=== PATIENT | female | born 1975 | race Caucasian/White ===

== ENCOUNTER 2016-08-04 17:10 | Observation (INO) | payer BC, MEDICAID ==
[~2016-08-04] VITALS: Ht 167.6 cm; Wt 91.5 kg
[~2016-08-04 17:10] MED LIST: FLAG500T PO; LEVA500T PO; PERC10TA27 PO; Z.0.NO CURRENT MEDS
[2016-08-04 17:11] VITALS: BP 151/79; PULSE 90; RESP 14; TEMP 98.7; O2SAT 100
[2016-08-04] MEDS ORDERED: VANCOMYCIN INJ 1,000 MG in SODIUM CHLOR 0.9% 250 ML INJ 250 ML IV STA (17:29)
[2016-08-04] MEDS ORDERED: PIPERACIL-TAZO 4.5 GM PREMIX 100 ML IV STA (17:29)
[2016-08-04] MEDS ORDERED: SODIUM CHLORID 0.9% 500 ML INJ 500 ML IV ONE (17:30)
[2016-08-04 17:38] VITALS: O2SAT 100
[2016-08-04] MEDS ORDERED: BUPR150CR PO (17:38)
[2016-08-04] MEDS ORDERED: CYMB30CA PO (17:38)
[2016-08-04] MEDS ORDERED: SUBO8MIS SL (17:38)
[2016-08-04] MEDS ORDERED: GABA800T PO (17:38)
[2016-08-04 18:10] LABS: AUTOMATED NEUTROPHIL # 8.9 TH/MM3 (1.8-7.7); BASOPHIL # 0.1 TH/MM3 (0-0.2); BASOPHIL % 0.8 % (0.0-2.0); EOSINOPHIL # 0.5 TH/MM3 (0-0.4); HEMATOCRIT 36.2 % (35.0-46.0); HEMO FLAGS DIFF FINAL; LYMPH % 19.6 % (9.0-44.0); LYMPHOCYTE # 2.6 TH/MM3 (1.0-4.8); MEAN CELL VOLUME 88.1 FL (80.0-100.0); MEAN CORPUSCULAR HEMOGLOBIN 29.4 PG (27.0-34.0); MEAN CORPUSCULAR HGB CONC 33.4 % (32.0-36.0); MONO % 8.4 % (0.0-8.0); NEUT % 67.2 % (16.0-70.0); PLATELET COUNT 279 TH/MM3 (150-450); RED CELL DISTRIBUTION WIDTH 13.9 % (11.6-17.2); WHITE BLOOD COUNT 13.2 TH/MM3 (4.0-11.0)
--- NOTE | 2016-08-04 18:17 | RADRPT ---
EXAM DATE/TIME: 08/04/2016 17:54 [facility] COMPARISON: No previous studies available for comparison. INDICATIONS : Shortness of breath. MEDICAL HISTORY : SURGICAL HISTORY : Tubal ligation. ENCOUNTER: Initial ACUITY: 2 days PAIN SCORE: 0/10 LOCATION: Bilateral chest FINDINGS: A single view of the chest demonstrates the lungs to be symmetrically aerated without evidence of mas s, infiltrate or effusion. The cardiomediastinal contours are unremarkable. Osseous structures are intact. CONCLUSION: No acute disease. Raghav Novoa MD on August 04, 2016 at 18:15 Board Certified Radiologist. This report was verified electronically.
[2016-08-04 18:23] LABS: APTT (PATIENT) 28.7 SEC (24.3-30.1); INTERNATIONAL NORMALIZED RATIO 0.9 RATIO
--- NOTE | 2016-08-04 18:23 | PD ---
HPI Chief Complaint: Cardiac Complaint Time Seen by Provider: 17:26 Travel History International Travel<30 days: No Contact w/Intl Traveler<30days: No Traveled to known affect area: No History of Present Illness HPI 41 y/o female presents with 14 pound weight gain over the past week and new murmur with history of IV drug abuse and endocarditis sent in from Dr. laird 's office. She's also been having orthopnea. She was sent here for admission but given there are no rooms available upstairs she was sent to the emergency room initially [facility] Past Medical History ADHD: Yes Blood Disorders: No Anxiety: No Depression: No Heart Rhythm Problems: No Cancer: No Cardiovascular Problems: No High Cholesterol: No Chemotherapy: No Chest Pain: No Congestive Heart Failure: No Cirrhosis: Yes (hep c ) Diabetes: No Endocrine: No Genitourinary: Yes (INCONTINENCE) Hepatitis: No Hiatal Hernia: No Immune Disorder: No Kidney Stones: Yes Medical other: Yes (4G/4G CLOTTING DISORDER) Musculoskeletal: No Neurologic: No Psychiatric: No Respiratory: No Radiation Therapy: No Thyroid Disease: No ?: Not Tubal Ligation: Yes Past Surgical History Gynecologic Surgery: Yes (D/C, TUBAL LIG., HYSTERECTOMY) Hysterectomy: Yes Pacemaker: No Other Surgery: Yes Social History Alcohol Use: Yes (RARELY) Tobacco Use: Yes ( 1/2PPD FOR 16 YEARS) Substance Use: No Allergies-Medications (Allergen,Severity, Reaction): Coded Allergies: Vancomycin (Verified Allergy, Severe, Rash, 08/04/16) Reported Meds & Prescriptions Reported Meds & Active Scripts Active Reported Gabapentin 800 Mg Tab 800 Mg PO QID Cymbalta DR (Duloxetine HCl) 30 Mg Capdr 30 Mg PO HS Wellbutrin SR 12 HR (Bupropion HCl) 150 Mg Tab 300 Mg PO DAILY Suboxone Sublingual Film (Buprenorphine-Naloxone Sublingual Film) 8-2 Mg Film 1 Film SL BID Unique ID number required: Review of Systems Except as stated in HPI: all other systems reviewed are Neg Physical Exam Narrative GENERAL: Well-nourished, well-developed patient. SKIN: Warm and dry. HEAD: Normocephalic and atraumatic. EYES: No injection or drainage. ENT: No nasal drainage noted. NECK: Supple, trachea midline. CARDIOVASCULAR: Regular rate and rhythm RESPIRATORY: No increased effort. No accessory muscle use. NEUROLOGICAL: Awake and alert. Motor and sensory grossly within normal limits. Normal speech. Data Data Last Documented VS Vital Signs Date Time Temp Pulse Resp B/P Pulse Ox O2 Delivery O2 Flow Rate FiO2 08/04/16:11 98.7 90 14 151/79 100 Room Air Orders Admit Order (Ed Use Only) (08/04/16 17:29) Electrocardiogram (08/04/16:29) Complete Blood Count With Diff (08/04/16:) Comprehensive Metabolic Panel (08/04/16:) Prothrombin Time / Inr (Pt) (08/04/16:) Act Partial Throm Time (Ptt) (08/04/16:) Lactic Acid Sepsis Protocol (08/04/16:) Magnesium (Mg) (08/04/16:) Phosphorus (Po4) (08/04/16:) Urinalysis - C+S If Indicated (08/04/16:) Blood Culture (08/04/16:29) Chest, Single Ap (08/04/16:29) Blood Glucose (08/04/16:29) Ecg Monitoring (08/04/16:29) Iv Access Insert/Monitor (08/04/16:) Oximetry (08/04/16:29) Vancomycin Inj (Vancomycin Inj) (08/04/16 17:29) Piperacil-Tazo 4.5 Gm Premix (Zosyn 4.5 (08/04/16 17:29) Sodium Chlorid 0.9% 500 Ml Inj (Ns 500 M (08/04/16 17:30) B-Type Natriuretic Peptide (08/04/16 17:29) Ckmb (Isoenzyme) Profile (08/04/16 17:29) Troponin I (08/04/16 17:29) MDM Medical Decision Making Medical Screen Exam Complete: Yes Emergency Medical Condition: Yes Medical Record Reviewed: Yes (past history confirmed) Differential Diagnosis Endocarditis, UTI, pneumonia, abscess.... Narrative Course Initial workup ordered including cultures and lactate and broad-spectrum antibiotics of Zosyn, vancomycin and IV fluid hydration was initiated, further care will be through her admitting physician Physician Communication Physician Communication dr samuel talked with me over the phone and agrees to initial orders as discussed and she will take over care and gave me basic initial history Diagnosis Primary Impression: IVDU (intravenous drug user) Admitting Information Admitting Physician Requests: Observation Ebony Shipley MD Aug 04, 2016 18:23
[2016-08-04 18:27] LABS: ALT (GPT) 35 U/L (10-53); ANION GAP 6 MEQ/L (5-15); AST (GOT) 29 U/L (15-37); BICARBONATE 29.1 MEQ/L (21.0-32.0); BLOOD UREA NITROGEN 6 MG/DL (7-18); CHLORIDE 105 MEQ/L (98-107); GLOMERULAR FILTRATION RATE 86 ML/MIN (>89); MAGNESIUM 1.9 MG/DL (1.5-2.5); SODIUM (NA) 140 MEQ/L (136-145)
[2016-08-04 18:32] LABS: ALKALINE PHOSPHATASE 116 U/L (45-117); CREATINE KINASE 240 U/L (26-192); TOTAL BILIRUBIN ADULT 0.2 MG/DL (0.2-1.0)
[2016-08-04 18:44] LABS: CKMB 6.2 NG/ML (0.5-3.6)
[2016-08-04 21:41] VITALS: O2SAT 100
[2016-08-04 22:00] VITALS: BP 147/69; PULSE 78; RESP 18; TEMP 98.7; O2SAT 98
[2016-08-04 23:05] VITALS: BP 102/54; PULSE 79; RESP 18; O2SAT 98
[2016-08-05] VITALS (9 sets, daily range): BP systolic 100–117; BP diastolic 50–64; PULSE 70–79; RESP 16–21; TEMP 98–98.4; O2SAT 94–98
[2016-08-05 00:36] LABS: BASOPHIL # 0.1 TH/MM3 (0-0.2); BASOPHIL % 0.8 % (0.0-2.0); EOSINOPHIL # 0.6 TH/MM3 (0-0.4); EOSINOPHIL % 5.6 % (0.0-4.0); HEMATOCRIT 31.6 % (35.0-46.0); HEMO FLAGS DIFF FINAL; LYMPH % 22.2 % (9.0-44.0); LYMPHOCYTE # 2.2 TH/MM3 (1.0-4.8); MEAN CELL VOLUME 86.6 FL (80.0-100.0); MEAN CORPUSCULAR HEMOGLOBIN 30.2 PG (27.0-34.0); MEAN CORPUSCULAR HGB CONC 34.9 % (32.0-36.0); MONO % 10.7 % (0.0-8.0); NEUT % 60.7 % (16.0-70.0); PLATELET COUNT 249 TH/MM3 (150-450); RED BLOOD COUNT 3.65 MIL/MM3 (4.00-5.30); RED CELL DISTRIBUTION WIDTH 13.7 % (11.6-17.2)
[2016-08-05 00:41] LABS: BICARBONATE 28.4 MEQ/L (21.0-32.0); POTASSIUM 3.7 MEQ/L (3.5-5.1)
[2016-08-05 00:48] LABS: APTT (PATIENT) 29.3 SEC (24.3-30.1); INTERNATIONAL NORMALIZED RATIO 0.9 RATIO
[2016-08-05] MEDS: SODIUM CHLORIDE FLUSH BID IVF SCH ×2 (00:59→20:24)
[2016-08-05] MEDS ORDERED: SODIUM CHLORIDE FLUSH PRN IVF (01:00)
[2016-08-05] MEDS ORDERED: FUROSEMIDE 20 MG/2 ML VIAL IV PUSH ONE (01:00)
[2016-08-05 01:39] LABS: AMPHETAMINE, URINE NEG (NEG); BACTERIA, URINE RARE /hpf; BARBITURATES, URINE NEG (NEG); BLOOD, URINE NEG (NEG); COCAINE, URINE NEG (NEG); COMMENT (UR) CATH-CULTURE IND; CULTURE IF INDICATED CATH CULTURE IND; GLUCOSE,URINE NEG (NEG); KETONE, URINE NEG (NEG); MUCUS URINE FEW /lpf (OCC); NITRITE,URINE NEG (NEG); SQUAMOUS EPITHELIAL CELL URINE 9 /hpf (0-5); URINE COLOR YELLOW (YELLW/STRAW)
--- NOTE | 2016-08-05 08:19 | PD.CONS ---
HPI Chief Complaint Severe SOB, 2 pillow orthopnea, cough and swelling hx of rececnt IV drug us (Jul 23 last time) hx of suboptimally treated endocarditis [place] Date Seen: Aug 05, 2016 Time Seen: 08:16 Travel History International Travel<30 Days: No Contact w/Intl Traveler<30Days: No Known Affected Area: No History of Present Illness HPI Full H & P dictated yesterday No fever, no tachycardia bad "pins and needles" in lower extremities pulse ox 92%?? Allergies-Medications (Allergen,Severity, Reaction): Coded Allergies: Vancomycin (Verified Allergy, Severe, Rash, 08/04/16) Home Meds Reported Medications Gabapentin 800 Mg [id number] Mg PO QID #90 TAB Ref 0 08/04/[address] (Cymbalta DR)30 Mg Capdr30 Mg PO HS #30 CAP Ref 0 08/04/16 Bupropion HCl ER 12 HR (Wellbutrin SR 12 HR)150 Mg [id number] Mg PO DAILY Ref 0 08/04/16 Buprenorphine-Naloxone Sublingual Film (Suboxone Sublingual Film)8-2 Mg Film1 Film SL BID Unique ID number required: 08/04/16 Physical Exam Narrative GENERAL: Well-nourished, well-developed patient. SKIN: Warm and dry. HEAD: Normocephalic and atraumatic. EYES: No scleral icterus. No injection or drainage. ENT: No nasal drainage noted. Mucous membranes pink. Airway patent. NECK: Supple, trachea midline. No JVD. CARDIOVASCULAR: Regular rate and rhythm without murmurs, gallops, or rubs. RESPIRATORY: Breath sounds equal bilaterally. No accessory muscle use. BREASTS: Bilateral exam showed no masses , no retractions, no nipple discharge. ABDOMEN/GI: Abdomen soft, non-tender, bowel sounds present, no rebound, no guarding Gravid to [-] weeks size Fundal Height: [-] GENITOURINARY: External Genitalia: intact and normal in appearance BUS glands: [-] Cervix: [-] Dilatation: [-] Effacement: [-] Station: [-] Presentation: [-] Membranes: [intact or ruptured] Uterine Contractions: [-] FHT's: Category: [-] Baseline: [-] Reactive: [-] Variability: [-] Decels: [-] EXTREMITIES: No cyanosis or edema. BACK: Nontender without obvious deformity. No CVA tenderness. NEUROLOGICAL: Awake and alert. Motor and sensory grossly within normal limits. Five out of 5 muscle strength in all muscle groups. Normal speech. Data Data Orders Admit Order (Ed Use Only) (08/04/16:29) Electrocardiogram (08/04/16:29) Complete Blood Count With Diff (08/04/16:29) Comprehensive Metabolic Panel (08/04/16:29) Prothrombin Time / Inr (Pt) (08/04/16:) Act Partial Throm Time (Ptt) (08/04/16:29) Lactic Acid Sepsis Protocol (08/04/16:) Magnesium (Mg) (08/04/16:) Phosphorus (Po4) (08/04/16:) Urinalysis - C+S If Indicated (08/04/16:) Blood Culture (08/04/16:) Chest, Single Ap (08/04/16:29) Blood Glucose (08/04/16:29) Ecg Monitoring (08/04/16:29) Iv Access Insert/Monitor (08/04/16:29) Oximetry (08/04/16:29) Vancomycin Inj (Vancomycin Inj) (08/04/16:29) Piperacil-Tazo 4.5 Gm Premix (Zosyn 4.5 (08/04/16 17:29) Sodium Chlorid 0.9% 500 Ml Inj (Ns 500 M (08/04/16 17:30) B-Type Natriuretic Peptide (08/04/16 17:29) Ckmb (Isoenzyme) Profile (08/04/16 17:29) Troponin I (08/04/16:29) Diet Regular Basic (08/04/16 Dinner) ^ Call Physician (08/04/16 17:46) CKMB (08/04/16 17:45) CKMB% (08/04/16 17:45) Vital Signs (Adult) MELINA.Q4H (08/04/16 23:26) Drug Screen, Random Urine (08/04/16 23:26) Complete Blood Count With Diff (08/04/16 23:26) Prothrombin Time / Inr (Pt) (08/04/16 23:26) Act Partial Throm Time (Ptt) (08/04/16 23:26) Basic Metabolic Panel (Bmp) (08/04/16 23:26) Intake + Output 06,14,22 (08/04/16 23:26) ^ Other Nursing Orders (08/04/16 23:26) Resp Pulse Oximetry (08/04/16 ) Diet Npo (08/05/16 Breakfast) NPO (08/04/16 23:26) Consult Cardiology (08/04/16 23:41) Gabapentin (Neurontin) (08/05/16 09:00) Bupropion Sr (Wellbutrin Sr) (08/05/16 09:00) Duloxetine Dr (Dennise Sauer) (08/05/16 09:00) Sodium Chloride 0.9% Flush (Ns Flush) (08/05/16 09:00) Sodium Chloride 0.9% Flush (Ns Flush) (08/05/16 01:00) Furosemide Inj (Lasix Inj) (08/05/16 01:00) Urine Culture (08/05/16 01:10) (Hub Use Only)Inp Phy Cons/Ref (08/05/16 ) Echo Transesophageal (08/05/16 ) Labs Laboratory Tests Test 08/04/16 08/05/16 08/05/16 17:45 00:05 01:10 Prothrombin Time 10.0 10.0 Prothromb Time International 0.9 0.9 Ratio Activated Partial 28.7 29.3 Thromboplast Time Sodium Level 140 141 Potassium Level 4.0 3.7 Chloride Level 105 107 Carbon Dioxide Level 29.1 28.4 Anion Gap 6 6 Blood Urea Nitrogen 6 6 Creatinine 0.75 0.71 Estimat Glomerular Filtration 86 91 Rate Random Glucose 93 106 Lactic Acid Level 1.7 Calcium Level 9.0 8.4 Phosphorus Level 2.9 Magnesium Level 1.9 Total Bilirubin 0.2 Aspartate Amino Transf 29 (AST/SGOT) Alanine Aminotransferase 35 (ALT/SGPT) Alkaline Phosphatase 116 Total Creatine Kinase 240 Creatine Kinase MB 6.2 Creatine Kinase MB % 2.6 Troponin I LESS THAN 0.02 B-Type Natriuretic Peptide 13 Total Protein 6.5 Albumin 3.2 White Blood Count 13.2 10.0 Red Blood Count 4.10 3.65 Hemoglobin 12.1 11.0 Hematocrit 36.2 31.6 Mean Corpuscular Volume 88.1 86.6 Mean Corpuscular Hemoglobin 29.4 30.2 Mean Corpuscular Hemoglobin 33.4 34.9 Concent Red Cell Distribution Width 13.9 13.7 Platelet Count 279 249 Mean Platelet Volume 7.7 7.9 Neutrophils (%) (Auto) 67.2 60.7 Lymphocytes (%) (Auto) 19.6 22.2 Monocytes (%) (Auto) 8.4 10.7 Eosinophils (%) (Auto) 4.0 5.6 Basophils (%) (Auto) 0.8 0.8 Neutrophils # (Auto) 8.9 6.0 Lymphocytes # (Auto) 2.6 2.2 Monocytes # (Auto) 1.1 1.1 Eosinophils # (Auto) 0.5 0.6 Basophils # (Auto) 0.1 0.1 CBC Comment DIFF FINAL DIFF FINAL Differential Comment Urine Color YELLOW Urine Turbidity CLEAR Urine pH 6.0 Urine Specific [place] 1.027 Urine Protein TRACE Urine Glucose (UA) NEG Urine Ketones NEG Urine Occult Blood NEG Urine Nitrite NEG Urine Bilirubin NEG Urine Urobilinogen 2.0 Urine Leukocyte Esterase NEG Urine RBC 1 Urine WBC 2 Urine Squamous Epithelial 9 Cells Urine Bacteria RARE Urine Mucus FEW Microscopic Urinalysis Comment CATH-CULTURE IND Urine Opiates Screen NEG Urine Barbiturates Screen NEG Urine Amphetamines Screen NEG Urine Benzodiazepines Screen NEG Urine Cocaine Screen NEG Urine Cannabinoids Screen POS Date/Time Procedure Status Source Growth 08/05/16 01:10 Urine Culture Received Urine Catheterized Urine Pending 08/04/16 17:45 Aerobic Blood Culture Received Blood Peripheral Pending 08/04/16 17:45 Anaerobic Blood Culture Received Blood Peripheral Pending [facility] Medical Record Reviewed: Yes Plan awaiting MANNY today and disposition thereafter currently on zosyn cultures pending. Admitting diagnosis: opioid maintenance, rule out endocarditis Renetta Parker MD Aug 05, 2016 08:19
--- NOTE | 2016-08-05 08:56 | MH ---
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 SECONDARY DIAGNOSIS: Hepatitis C with a sustained viral response to medication. Fibromyalgia versus autoimmune disease, mixed connective tissue disease. Depression and anxiety. HISTORY OF PRESENT ILLNESS: The patient is a 41 year-old white female, para 3, status post total abdominal hysterectomy in the distant past, who has been in my practice now approximately six months. She recently began Suboxone 8 milligrams b.i.d. having had a recent relapse of IV drug use, the last time being July 23. She did share needles at that time. She has had chronic pain, possibly due to a mixed connective or autoimmune process versus fibromyalgia and depression and we have been treating for these dual diagnoses for the last six months. MEDICATIONS: Her medications are: 1. Suboxone 8 milligrams b.i.d. 2. Gabapentin 800 q.i.d. 3. Wellbutrin 300 milligrams q a.m. 4. Cymbalta 30 q a.m. Beginning several days ago she developed severe shortness of breath and swelling in her legs. She has two pillow orthopnea and cannot lay flat. In six days she has gained 14 pounds. She has a 3/6 holosystolic murmur over the aortic valve. There is no arrhythmia. Her lungs did not auscultate wet. She has no CVA tenderness. Did not auscultate wet. She is complaining of increased joint and muscle pain. She denies fever, chills, nausea and vomiting or diarrhea. Her appetite has been the same or diminished. Her history is complicated. In addition to the above she has a positive Factor V Leiden. She has had a history of colonic polyps and recently had her gallbladder removed. She had Hepatitis C, underwent retroviral therapy and has had a sustained viral response. She has had a history of MRSA. It is unclear if her ovaries are still working at this time. She has no known kidney disease. No previous pulmonary disease. As mentioned, she had the bout of bacterial endocarditis last year and was treated at [facility] for approximately one week with IV antibiotics. She was to follow up afterwards but only took a spotty course or oral antibiotics and did not follow up with either Infectious Disease or cardiology as she knew she needed to. She then became clean, had a relapse in June and now is trying to use maintenance therapy for opioid dependence. REVIEW OF SYSTEMS: Otherwise negative. FAMILY HISTORY: Significant for both parents dying from blood cancer. PAST SURGICAL HISTORY: Significant for: Total abdominal hysterectomy. Gallbladder removal. SOCIAL HISTORY: She smoked about a half-pack per day. Denies current IV drug use or illicit substances, is not diverting her Suboxone. PHYSICAL EXAMINATION: Her weight is 202. It was 188 on July 28, and this is using the same scale. Her blood pressure today is 126/74, pulse is 80. She did not have an obvious JVD. Her lungs seem to be clear to auscultation and percussion, maybe some diminished breath sounds in the lower lobes. Heart: Rate and rhythm are regular, but she has a significant blowing murmur over the aortic valve that I did not appreciate in prior exam six months ago. I did not listen to her heart carefully last week. Abdomen: No fluid wave. No hepatosplenomegaly. This was confirmed on brief ultrasound in the office. She has no CVA tenderness. Her legs reveal 4+ edema all the way up above the knee and are tender to touch. IMPRESSION: Sudden weight gain, shortness of breath, and new cardiac murmur in the context of recent IV drug use and past history of bacterial endocarditis. She is at significant risk for a recurrence of bacterial endocarditis and is being sent to [place] to consult with Dr. Jaden Patterson and have a transesophageal echocardiogram in the morning. She will also receive Lasix, routine lab work. There is also the possibility of autoimmune or inflammatory process outside of what we have discussed. We did have a full set of labs that she is taking over to the hospital that showed an elevated white count of only 12.6 but with a left shift. Her LFTs were just minimally elevated and no detectable virus was identified. Follow up will be based on repeat lab work, MANNY. She will continue her Suboxone but may need additional cardiac treatment should she indeed have bacterial endocarditis. Renetta Acosta MD PPC/MANOHAR /2:52 PM /8:54 AM
[2016-08-05] MEDS: DULoxetine HCl DR 30 MG CAP PO SCH (10:19)
[2016-08-05] MEDS: GABAPENTIN 400 MG CAP PO SCH ×4 (10:19→20:23)
[2016-08-05] MEDS: buPROPion HCL 150 MG SUSTAINED RELEASE TAB PO SCH (10:19)
--- NOTE | 2016-08-05 10:25 | EKG ---
Date Performed: 08/04/2016 Time Performed: 17:45:07 PTAGE: 41 years EKG: Sinus rhythm NORMAL ECG NO PREVIOUS TRACING DOCTOR: Mesfin Hardy Interpretating Date/Time 08/05/2016 10:23:54
[2016-08-05] MEDS ORDERED: PROPOFOL 200 MG/20 ML AMP IV ONE (11:24)
--- NOTE | 2016-08-05 12:34 | HHI.PR ---
Subjective Remarks HD 2 s/p TTE Communication with Dr. Hernandez indicates no JOSEPH/SBE good function etiology of symptoms unclear. awaiting culture if cultures positive Jaden recommends repeat MANNY in 2 weeks in meantime will obtain help from hospitalist to explore causes of edema, orthopnea, cough and diffuse rashes and pain. Objective Vital Signs Vital Signs Date Time Temp Pulse Resp B/P Pulse Ox O2 Delivery O2 Flow Rate FiO2 08/05/16 08:04 75 21 104/55 94 08/05/16 06:19 73 16 104/63 97 Room Air 08/05/16 04:14 70 16 103/60 98 Room Air 08/05/16 01:42 94 21 08/05/16 01:19 71 18 100/50 97 Room Air 08/04/16 23:05 79 18 102/54 98 Room Air 08/04/16 22:00 98.7 78 18 147/69 98 Room Air 08/04/16 21:41 100 08/04/16 17:38 100 Room Air 08/04/16 17:11 98.7 90 14 151/79 100 Room Air Result Diagram: 08/05/16 0005 08/05/16 0005 Objective Remarks Chest is clear, regular rate and rhythm. Abdomen is soft and non-distended. Incision is clean and dry. Ext no CCE. A/P Assessment and Plan Post Op Day 1 Doing well Home today and return to office in two weeks. Renetta Parker MD Aug 05, 2016 12:34
--- NOTE | 2016-08-05 12:36 | ETE ---
Study Study Date:08/05/2016 STUDY CONCLUSIONS SUMMARY - Left ventricle: The cavity size was normal. Wall thickness was normal. Systolic function was normal. Wall motion was normal; there were no regional wall motion abnormalities. - Aortic valve: No evidence of vegetation. - Mitral valve: No evidence of vegetation. - Left atrium: No evidence of thrombus in the atrial cavity or appendage. - Tricuspid valve: No evidence of vegetation. - Pulmonic valve: No evidence of vegetation. If LV function is below 40, please consider prescribing an ACEI or ARB or document rationale for non-use. PROCEDURE DATA Consent: The risks, benefits, and alternatives to the procedure were explained to the patient and informed consent was obtained. Procedure: Initial setup. The patient was brought to the laboratory in the fasting state. Intravenous access was obtained. Surface ECG leads and pulse oximetric signals were monitored. Sedation. Deep sedation was administered by anesthesiology. Transesophageal echocardiography. A transesophageal probe was inserted by the attending drawer in. Image quality was good. Study completion: All IVs inserted during the procedure were removed. The patient tolerated the procedure well. There were no complications. Transesophageal echocardiography. 2D, complete spectral Doppler, and color Doppler. CARDIAC ANATOMY LEFT VENTRICLE: The cavity size was normal. Wall thickness was normal. Systolic function was normal. Wall motion was normal; there were no regional wall motion abnormalities. AORTIC VALVE: Structurally normal valve. Trileaflet; normal thickness leaflets. Cusp separation was normal. No evidence of vegetation. Doppler: No significant regurgitation. Aorta: - There was no atheroma. There was no evidence for dissection. Aortic root: The aortic root was not dilated. Ascending aorta: The ascending aorta was normal in size. Aortic arch: The aortic arch was normal in size. Descending aorta: The descending aorta was normal in size. MITRAL VALVE: Structurally normal valve. Leaflet separation was normal. No evidence of vegetation. Doppler: Trace regurgitation. LEFT ATRIUM: The atrium was normal in size. No evidence of thrombus in the atrial cavity or appendage. The appendage was morphologically a left appendage, multilobulated, and of normal size. Emptying velocity was normal. RIGHT VENTRICLE: The cavity size was normal. Wall thickness was normal. Systolic function was normal. PULMONIC VALVE: Structurally normal valve. No evidence of vegetation. TRICUSPID VALVE: Structurally normal valve. Leaflet separation was normal. No evidence of vegetation. Doppler: Trace regurgitation. PULMONARY ARTERY: The main pulmonary artery was normal-sized. RIGHT ATRIUM: The atrium was normal in size. PERICARDIUM: There was no pericardial effusion. Amended Navin Patterson. [id number]
--- NOTE | 2016-08-05 15:09 | RADRPT ---
EXAM DATE/TIME: 08/05/2016 14:43 [facility] COMPARISON: CHEST SINGLE AP, August 04, 2016, 17:54. INDICATIONS : Short of breath and cough. MEDICAL HISTORY : None. SURGICAL HISTORY : None. ENCOUNTER: Initial ACUITY: 3 months PAIN SCORE: 0/10 LOCATION: Bilateral chest FINDINGS: PA and lateral views of the chest demonstrate the lungs to be symmetrically aerated without evidence of mass, infiltrate or effusion. The cardiomediastinal contours are unremarkable. Osseous structure s are intact. CONCLUSION: Normal examination. Juliana Funez MD on August 05, 2016 at 15:08 Board Certified Radiologist. This report was verified electronically.
--- NOTE | 2016-08-05 15:22 | MB ---
cc: JOHNATHON NEFF MD DATE OF CONSULTATION: 08/05/2016. REASON FOR CONSULTATION: Possible endocarditis. HISTORY OF PRESENT ILLNESS: The patient is a pleasant 41-year-old woman with a history of bacterial endocarditis secondary to IV drug use who is remission from her drug use but then had a relapse this past fall. The patient presented to her OB / [facility] with symptoms of increasing orthopnea, lower extremity edema and night sweats. She was referred to the hospital for concern of recurrent endocarditis. The patient this afternoon is currently feeling comfortable and has diuresed some on her IV Lasix. She admits to the symptoms described above but is not actively short of breath. She says her last drug use was in May and she used IV drugs approximately five times. PAST MEDICAL HISTORY: 1. Prior endocarditis. 2. IV drug use in short-term remission. 3. Hepatitis C. 4. Fibromyalgia. 5. Depression. 6. Anxiety. HOME MEDICATIONS: Home medications include: 1. Suboxone. 2. Gabapentin. 3. Wellbutrin. 4. Cymbalta. CURRENT MEDICATIONS: 1. Gabapentin 800 four times a day. 2. Wellbutrin 300 milligrams daily. 3. Cymbalta 300 milligrams daily. ALLERGIES: VANCOMYCIN. PHYSICAL EXAMINATION: VITAL SIGNS: Afebrile, pulse 75, respiratory rate 21, blood pressure 104/55, satting 94 on two liters. GENERAL: A pleasant well-appearing woman in no distress. NECK: No jugular venous distention. LUNGS: Decreased breath sounds. CARDIOVASCULAR: Regular rate and rhythm. A 2/6 systolic murmur is appreciated at the left upper sternal border. ABDOMEN: Benign. EXTREMITIES: 1+ edema bilaterally. LABORATORY DATA: White count 10, down from 13.2, hematocrit 31.6, platelets 249,000. Sodium 141, potassium 3.7, chloride 107, bicarbonate 28.4, BUN 6, creatinine 0.71. Toxicology was positive for cannabinoids but negative for cocaine, benzodiazepines or opiates. Blood cultures are negative but pending. IMAGING STUDIES: Chest x-ray shows no acute disease. EKGS: There is no EKG in electronic medical record. IMPRESSION: 1. Possible recurrent endocarditis. The patient has a history of recent drug use and now symptoms of congestive heart failure indicating possible valve incompetence. She does have a murmur on exam, though less prominent than when her truck driver salesperson, Dr. Parker evaluated her, possibly due to her diuresis. I believe a transesophageal echocardiogram is warranted to formally exclude or rule in endocarditis, and this will be done shortly. Further recommendations will based on her transesophageal echocardiogram results. Thank you again for the opportunity to participate in this patient's care. MD ANNA Quigley/FARA /11:56 AM /3:12 PM
[2016-08-05] MEDS: RESP: ALBUTEROL 2.5 MG/IPRATROPIUM 0.5 MG NEB (SCH) NEB (19:55)
[2016-08-05] MEDS ORDERED: IOHEXOL 350 MG/ML 10 ML VIAL (for RAD DIAG) IV ONE (20:34)
--- NOTE | 2016-08-05 20:46 | MB ---
cc: LUPE MONTALVO MD ATTENDING PHYSICIAN Dr. Parker REASON FOR CONSULTATION Hematology consulted to render opinion regarding patient with history of Factor V Leiden mutation and to rule out blood clot. HISTORY OF PRESENT ILLNESS The patient is a 41-year-old female with history of IV drug use who presented to the hospital with complaint of increased shortness of breath and generalized swelling. She had history of IV drug use but had quit for awhile. However, she had relapsed in the fall and her last drug use in May. She stated about four weeks ago she started having increased swelling of her hands and feet. She felt tightness and tenderness of her body. She also had increased shortness of breath. According to , she tends to lay on her side and does not breathe well when she was sleeping. She has put on some weight and, over the last week, she put on about 14 pounds. She denies any fever, chills, denies any significant chest pressure, palpitation. Denies any nausea, vomiting, diarrhea, abdominal pain. Denies any melena, hematochezia, any dysuria or hematuria. PAST MEDICAL HISTORY 1. Factor V Leiden mutation. She has no history of thromboembolic event 2. Colon polyps 3. MRSA 4. Hepatitis C 5. IV drug use. 6. Bacterial endocarditis a year ago. 7. Fibromyalgia. 8. Multiple miscarriages. PAST SURGICAL HISTORY 1. cholecystectomy, 2. Total abdominal hysterectomy. FAMILY HISTORY Noncontributory. SOCIAL HISTORY Smoked for at least 20 years now. She would smoke a half-a-pack a day. Denies alcohol use. She has IV drug use as above. ALLERGIES VANCOMYCIN MEDICATIONS Current, 1. DuoNebs, 2. Gabapentin 3. Wellbutrin. 4. Cymbalta. REVIEW OF SYSTEMS CONSTITUTIONAL: Denies any fever, chills. She has chronic night sweats. She had weak gain. EYES: Denies any blurry vision, double vision. ENT: No mouth sores or voice changes. CARDIOVASCULAR: As above. RESPIRATORY: As above. GI: Denies any nausea, vomiting, diarrhea, abdominal pain, melena, hematochezia. : No dysuria or hematuria. MUSCULOSKELETAL: As above. HEMATOLOGY: Negative. ENDOCRINE: Negative. DERMATOLOGY: Negative. PSYCHIATRIC: Negative. NEUROLOGIC: Negative. PHYSICAL EXAMINATION VITAL SIGNS: Temperature 98, blood pressure 170/64, O2 saturation 94% room air. GENERAL: She is alert and oriented x3 in no acute distress. HEENT: Atraumatic, normocephalic. Pupils equal, round, reactive to light. Extraocular muscles intact. No scleral icterus Oropharynx dry mucosa. No lesion or thrush. No mucositis. NECK: No thyromegaly. No palpable mass. LYMPHATICS: No palpable cervical, clavicular, axillary or inguinal lymph node CARDIOVASCULAR: Regular S1-S2, no murmur. LUNGS: Clear to auscultation, bilateral wheezing. ABDOMEN: Soft, nontender. I could not palpate liver or spleen. EXTREMITIES: No cyanosis or clubbing. She has diffuse puffiness of mid leg. No pitting edema. It is a little sore to palpation. BACK: No paravertebral tenderness. SKIN: No rash or petechiae. NEUROLOGIC: Exam nonfocal. LABORATORY DATA Reviewed ASSESSMENT 1. History of Factor V Leiden mutation. I am assuming it is a heterozygous Factor V Leiden mutation. She had history of multiple miscarriages and hypercoagulable workup showed the mutation. She however has no history of thromboembolic event. She also has no family history of thromboembolic event. She has diffuse edema of upper extremity and lower extremities. She also has shortness of breath. I do not think she has any blood clot at this point. I am going to check a D-dimer and we will get a CT of the chest to see if we can find etiology of her shortness of breath. She recently had a CT abdomen and pelvis which reportedly was unremarkable other than cholecystitis. 2. Diffuse edema with shortness of breath and orthopnea. She had gained significant amount of weight. Her BNP was normal. She was evaluated by cardiology. Due to her history of IV drug use and endocarditis, she had a MANNY done during this hospital stay which did not show any vegetation or endocarditis. 3. Generalized edema, muscle ache. I am wondering if this is due to a possible autoimmune disorder. We will check a C-reactive protein, FRANCES and rheumatoid factor. 4. History of IV drug use. She last used IV drug in May. 5. History of Hepatitis C. 6. Fibromyalgia. RECOMMENDATIONS 1. Get a CT of the chest. 2. Check blood work outlined as above. Thank you, Dr. Parker, for asking me to see this patient. MD PORFIRIO Calvert /7:31 PM /8:16 PM MTD
--- NOTE | 2016-08-05 21:22 | RADRPT ---
EXAM DATE/TIME: 08/05/2016 20:31 [facility] COMPARISON: No previous studies available for comparison. INDICATIONS : Shortness of breath and cough. IV CONTRAST: 60 cc Omnipaque 350 (iohexol) IV RADIATION DOSE: 4.71 CTDIvol (mGy) MEDICAL HISTORY : Hepatitis C. Bacterial endocarditis. SURGICAL HISTORY : Hysterectomy. ENCOUNTER: Initial ACUITY: 1 day PAIN SCALE: 4/10 LOCATION: chest TECHNIQUE: Volumetric scanning of the chest was performed. Using automated exposure control and adjustment of t he mA and/or kV according to patient size, radiation dose was kept as low as reasonably achievable to obtain optimal diagnostic quality images. FINDINGS: LUNGS: Very minimal airspace disease is evident bilaterally PLEURA: There is no pleural thickening or pleural effusion. MEDIASTINUM: The heart and great vessels demonstrate no acute abnormality. There is no mediastinal or hilar lymph adenopathy. AXILLAE: Within normal limits. No lymphadenopathy. SKELETAL: Within normal limits for patient age. MISCELLANEOUS: The visualized upper abdominal organs demonstrate no acute abnormality. CONCLUSION: Very minimal airspace disease, otherwise negative. Ludin Fairbanks MD FACR on August 05, 2016 at 21:19 Board Certified Radiologist. This report was verified electronically.
[2016-08-05] MEDS ORDERED: TEMAZEPAM 15 MG CAP PO ONE (22:00)
[2016-08-06 01:55] VITALS: BP 110/57; PULSE 74; RESP 18; TEMP 98.7; O2SAT 97
[2016-08-06 04:23] LABS: RHEUMATOID FACTOR TRIGGER LESS THAN 10.0 IU/ML (0.0-14.9)
--- NOTE | 2016-08-06 06:37 | RADRPT ---
EXAM DATE/TIME: 08/06/2016 06:22 [facility] COMPARISON: CHEST SINGLE AP, August 04, 2016, 17:54. INDICATIONS : Evaluate for pneumonia. Cough and shortness of breath x 3 months. MEDICAL HISTORY : None. SURGICAL HISTORY : Tubal ligation. ENCOUNTER: Subsequent ACUITY: 3 days PAIN SCORE: 0/10 LOCATION: chest FINDINGS: A single view of the chest demonstrates the lungs to be symmetrically aerated without evidence of mas s, infiltrate or effusion. The cardiomediastinal contours are unremarkable. Osseous structures are intact. CONCLUSION: 1. No acute cardiopulmonary disease. Jag Santizo MD on August 06, 2016 at 6:35 Board Certified Radiologist. This report was verified electronically.
[2016-08-06 06:39] VITALS: BP 114/56; PULSE 72; RESP 21; TEMP 97.6; O2SAT 97
--- NOTE | 2016-08-06 07:04 | MB ---
cc: MITZYTELLYSHANIA DATE OF CONSULTATION 08/05/2016 REASON FOR CONSULTATION Cough and wheezing HISTORY OF PRESENT ILLNESS This is a 41-year-old lady with a history of recent weight gain and a heart murmur who has been on IV drugs including opioids. The patient was suspected to have endocarditis. She has had some low grade fevers, complaints of rapid heart beat and also some pains along the lower chest area. She denied any hemoptysis, leg or calf muscle pains, but has had some joint pains, particularly of the fingers and the lower extremities. Over the past several weeks, however, she has had a cough and brings up for a little whitish mucus and has had some loss of appetite. The patient had a chest x-ray and she is maintaining a sat of over 96% on room air. Denies any leg or calf muscle pains. PAST HISTORY 1. Is not significant for any chronic lung disease. 2. She has had tubal ligation and a hysterectomy in the past. 3. She has had kidney stones in the past. HABITS The patient smokes half to one-pack per day and has done so for 16 years. Alcohol use occasional. ALLERGIES VANCOMYCIN MEDICATIONS 1. Cymbalta 30 mg at bedtime 2. Wellbutrin 150 mg twice a day 3. Suboxone sublingual 2 mg sublingual b.i.d. FAMILY HISTORY Noncontributory REVIEW OF SYSTEMS The patient has gained weight. She has dizziness, postnasal drip. She has cough, chest congestion and wheezing. She has epigastric distress. No nausea, vomiting, no urinary symptoms. No leg or calf muscle pains. She has had some joint pains and denied any skin lesions. PHYSICAL EXAMINATION This middle-aged, moderately overweight white female is in no acute distress. VITAL SIGNS: Blood pressure 150/70, pulse is 95, respirations are 22, temperature 98.7. HEENT: Head normocephalic. Pupils are reactive. Nasal mucosa injected. Throat clear. NECK: Supple. No lymphadenopathy. No bruits. CHEST: Equal movements with percussion note resonant throughout. Occasional expiratory wheezes bilaterally and no crackles. HEART: Sounds are regular S1-S2 with an apical systolic murmur 1/6. ABDOMEN: Soft, nontender. No organomegaly. Bowel sounds are active. EXTREMITIES: Mild varicosities minimal edema. No calf tenderness. Reflexes 1+ with no gross motor deficits. NEUROLOGIC: Cranial nerves grossly intact. RECTAL: Exam is deferred. SKIN: No lesions. IMPRESSION 1. Possible endocarditis 2. Acute bronchitis and bronchospasm 3. History of hepatitis C. 4. Coagulopathy 5. Possible endocarditis 6. History of IV drug abuse. PLAN The patient has been started on antibiotic coverage including vancomycin and Zosyn. We will wait for the blood, urine, and sputum cultures. Also place her on DuoNeb solution q.i.d. 2-D echocardiogram was done. It will also be sent for a CTA of the chest and repeat CBC and basic metabolic profile. Nicotine patch as needed every 24 hours and a PFT will be done when she is clinically stable. Thank you for this consultation. MD YOSELIN Larkin/GERA /11:00 PM /6:48 AM
[2016-08-06] MEDS: RESP: ALBUTEROL 2.5 MG/IPRATROPIUM 0.5 MG NEB (SCH) NEB (07:51)
[2016-08-06 07:57] VITALS: O2SAT 98
[2016-08-06 08:00] VITALS: BP 95/56; PULSE 70; RESP 20; TEMP 97.2; O2SAT 100
--- NOTE | 2016-08-06 08:24 | HHI.PR ---
Subjective Remarks Laying supine with slightly raised head comfortably Still has harsh cough slept well with trazadone Objective Vital Signs Vital Signs Date Time Temp Pulse Resp B/P Pulse Ox O2 Delivery O2 Flow Rate FiO2 08/06/16 07:57 98 21 08/06/16 06:39 97.6 72 21 114/56 97 08/06/16 01:55 98.7 74 18 110/57 97 08/05/16 19:50 97 08/05/16 19:35 98.4 79 21 114/56 97 08/05/16 19:15 79 08/05/16 16:07 98.0 76 20 117/64 94 I/O 08/05/16 08/05/16 08/05/16 08/06/16 08/06/16 08/06/16 07:00 15:00 23:00 07:00 15:00 23:00 Intake Total 480 ml Balance 480 ml Intake Oral 480 ml # Voids 1 1 1 2 Result Diagram: 08/05/16 0005 08/05/16 0005 Objective Remarks Chest is clear, regular rate and rhythm.Murmur is less than in office--diuresis ? But still holosystolic Abdomen is soft and non-distended. Ext no CCE. still pitting edema A/P Assessment and Plan HD 3 Reassuring MANNY and imaging Issue of rheumotologic or autoimmune etiology being worked up. All consults greatly appreciated I have explained to Rajwinder that treating such conditions involves medications that suppress immunity which would be very dangerous with any IV use and introduction of infection. Need cultures to be negative before such treatment could be considered. Will give her script for restoril 30 q HS, since the good night sleep has allowed her to feel better still has hip and muscle pain. Will wait for rheumotology consult and then discharge with her routine meds and restoril and office follow up. I will continue to give her the suboxone and depression medications until consistent psychiatric support can be identified (Rajwinder is the sister of my nurse in the office) I can be reached at [phone] Renetta Parker MD Aug 06, 2016 08:24
[2016-08-06] MEDS ORDERED: TEMA30CA PO (08:27)
--- NOTE | 2016-08-06 08:28 | HHI.DCPOC ---
Discharge Care Plan Report Symptoms to Your Doctor -Temperate above 100.5 degrees -Redness, of incision or excessive or foul smelling drainage -Unusual pain or calf pain -Increased vaginal bleeding -Painful or difficulty urinating -Feelings of extreme sadness or anxiety after 2 weeks Goals to Promote Your Health * To prevent worsening of your condition and complications * To maintain your health at the optimal level Directions to Meet Your Goals Take your medications as prescribed Follow your dietary instruction Follow activity as directed Ensure plenty of rest for recovery Drink fluids for hydration Keep your appointments as scheduled Take your immunizations and boosters as scheduled If your symptoms worsen call your PCP, if no PCP go to Urgent Care Center or Emergency Room Smoking is Dangerous to Your Health. Avoid second hand smoke Call the 24-hour crisis hotline for domestic abuse at Renetta Parker MD Aug 06, 2016 08:28
--- NOTE | 2016-08-06 09:24 | PD.CONS ---
History of Present Illness Service Infectious Disease Consult Requested By Dr James Parker Reason for Consult Evaluate patient for possible infection, endocarditis Primary Care Physician Renetta Parker MD Diagnoses: History of Present Illness Patient seen and examined. Records reviewed. Patient is a 41-year-old female, presented to the hospital complaining of worsening shortness of breath, generalized edema, and a 13 pound weight loss in the last 1 week. She denies any chest pain, and her shortness of breath is mostly with exertion. Patient is a smoker, smokes about 5-6 cigarettes per day , but denies any problem with a smoker's cough. She had mentioned that in the last several month she has had this cough which at times would be worse than other days. It is fairly dry. She is complaining of significant swelling in her joints especially in her hand, and her low back and left hip, as well as in her knees and ankles. She denies any sore throat. There's been no nausea or vomiting or swallowing difficulty. No abdominal pain diarrhea or any urinary complaints. There is history of IV drug use, and she was apparently clean for a while up until middle of last year when she had a relapse. She was hospitalized in [facility] for about a week, and was told that she had endocarditis. She was reportedly discharge on oral antibiotics, and was supposed to have a follow-up with infectious disease and network and threat support specialist, but she ever did follow-up. Patient decided to stop using drugs, and the last time she had used it was around July 23. She is currently on Suboxone. Since then she's developed the mentioned problems that prompted this hospitalization. Patient has not had any fever here. Her white count is normal. Her urinalysis is okay. Chest x-ray is normal, and CTA did not show any pulmonary embolism. Cardiology saw the patient and a MANNY was done which did not show any evidence of vegetation, or any evidence of significant valvular abnormality. Her cardiac ejection fraction was also within normal limits. Currently patient's breathing problem is about the same, and she has not really noted any significant change in her swelling. Infectious disease consultation has been requested to evaluate the patient for infection causing her current problem. Review of Systems Constitutional: COMPLAINS OF: Weight gain, DENIES: Fever, Chills, Night Sweats Eyes: DENIES: Eye pain, Vision loss Ears, nose, mouth, throat: DENIES: Nasal discharge, Oral lesions, Throat pain, Ear Pain, Sinus Pain, Toothache Respiratory: COMPLAINS OF: Cough, Shortness of breath, DENIES: Hemoptysis, Sputum production Cardiovascular: COMPLAINS OF: Dyspnea on Exertion, Lower Extremity Edema, DENIES: Chest pain Gastrointestinal: DENIES: Abdominal pain, Diarrhea, Nausea, Vomiting, Difficulty Swallowing Genitourinary: DENIES: Urinary frequency, Dysuria Musculoskeletal: COMPLAINS OF: Joint pain, Stiffness, Joint Swelling, Back pain Integumentary: DENIES: Rash Hematologic/lymphatic: DENIES: Lymphadenopathy Neurologic: DENIES: Headache Psychiatric: DENIES: Anxiety, Confusion Past Family Social History Allergies: Coded Allergies: Vancomycin (Verified Allergy, Severe, Rash, 08/04/16) Past Medical History Factor V Leiden mutation. She has no history of thromboembolic event Colon polyps Hepatitis C IV drug use. Bacterial endocarditis a year ago. Fibromyalgia. Multiple miscarriages. Past Surgical History Total abdominal hysterectomy Cholecystectomy Active Ordered Medications Albuterol Neurontin Wellbutrin Cymbalta Social History Smokes less than 1 pack per day of cigarettes Denies alcohol abuse Known IV drug use, claims last used July 23, 2016, on Suboxone Physical Exam Vital Signs Vital Signs Date Time Temp Pulse Resp B/P Pulse Ox O2 Delivery O2 Flow Rate FiO2 08/06/16 08:00 97.2 70 20 95/56 100 08/06/16 07:57 98 21 08/06/16 06:39 97.6 72 21 114/56 97 08/06/16 01:55 98.7 74 18 110/57 97 08/05/16 19:50 97 08/05/16 19:35 98.4 79 21 114/56 97 08/05/16 19:15 79 08/05/16 16:07 98.0 76 20 117/64 94 Physical Exam GENERAL: This is a well-nourished, well-developed female, awake and alert, looks comfortable at rest. She does not look toxic appearing. SKIN: Cool and dry. No generalized rash, no ecchymosis, no evidence of embolic lesions. HEAD: Atraumatic. Normocephalic. No temporal or scalp tenderness. EYES: [place] conjunctivae, no petechia or subconjunctival hemorrhage. Pupils equal round and reactive. Extraocular motions intact. No scleral icterus. No injection or drainage. ENT: Nose without bleeding, or purulent drainage. Moist oral mucosa. Throat without erythema, or exudate. Uvula midline. Airway patent. NECK: Trachea midline. No JVD or lymphadenopathy. Supple, nontender, no meningeal signs. CARDIOVASCULAR: Regular rate and rhythm without murmurs, gallops, or rubs. Has a very faint murmur at the base of the heart RESPIRATORY: Clear to auscultation. Breath sounds equal bilaterally. No wheezes , rales, or rhonchi. GASTROINTESTINAL: Abdomen soft, non-tender, nondistended. No hepato-splenomegaly , or palpable masses. No guarding. MUSCULOSKELETAL: Extremities without clubbing, cyanosis, or edema. No calf tenderness. Negative Homans sign bilaterally. She has some swelling of joints in both hands in MCP joints and PIP joints. Ankle also looks swollen, but no redness, no pain with active AMOS NEUROLOGICAL: Awake and alert. Cranial nerves II through XII intact. Motor and sensory grossly within normal limits. Five out of 5 muscle strength in all muscle groups. Normal speech. PSYCH: Calm and cooperative Laboratory Laboratory Tests Test 08/06/16 03:29 D-Dimer Quantitative (PE/DVT) 0.83 C-Reactive Protein 3.20 Rheumatoid Factor Screen NEGATIVE Rheumatoid Factor Titer Date/Time Procedure Status Source Growth 08/05/16 05:33 Gram Stain Received Sputum Expectorated Sputum Pending 08/05/16 05:33 Sputum Culture Received Sputum Expectorated Sputum Pending 08/05/16 01:10 Urine Culture Received Urine Catheterized Urine Pending 08/04/16 17:45 Aerobic Blood Culture - Preliminary Resulted Blood Peripheral NO GROWTH IN 1 DAY 08/04/16 17:45 Anaerobic Blood Culture - Preliminary Resulted Blood Peripheral NO GROWTH IN 1 DAY Result Diagram: 08/05/16 0005 08/05/16 0005 Imaging RADIOLOGY STUDIES/FILMS REVIEWED Chest X-Ray 08/06/16 0600 Signed Impressions: Service Date/Time: Saturday, August 06, 2016 06:22 - CONCLUSION: 1. No acute cardiopulmonary disease. Jag Santizo MD Chest CT 08/05/16 0000 Signed Impressions: Service Date/Time: July 20:31 - CONCLUSION: Very minimal airspace disease, otherwise negative. Ludin Fairbanks MD FACR Assessment and Plan Assessment and Plan IMPRESSION Etiology of OLVERA, weight gain, arthralgias with some joint swelling,? - clinically no evidence of active infection, as far as endocarditis, no PNA - has some bronchitis which has been on and off past several months ?Episode of endocarditis last year, currently no evidence clinically and MANNY negative Known IVDU, claims last use was Jul 23, 2016 RECOMMENDATION From ID standpoint, she is ok for D/C Currently I don't see any need to start any antimicrobial therapy Her cultures could be followed as outpatient, and she can be referred back to Dr Wendi Koch who had seen her when she was hospitalized at [facility] [place] Thank you for this consultation Discussed Condition With Explained my recommendation to the patient D/W Isatu Wade MD Aug 06, 2016 09:24
[2016-08-06] MEDS: buPROPion HCL 150 MG SUSTAINED RELEASE TAB PO SCH (09:33)
[2016-08-06] MEDS: GABAPENTIN 400 MG CAP PO SCH (09:33)
[2016-08-06] MEDS: DULoxetine HCl DR 30 MG CAP PO SCH (09:33)
[2016-08-06] MEDS: SODIUM CHLORIDE FLUSH BID IVF SCH (09:34)
[2016-08-06 10:52] VITALS: PULSE 79
--- NOTE | 2016-08-06 15:01 | PD.ONC.PN ---
Subjective Subjective Remarks ( late entry, patient seen at 9AM) Afebrile overnight. Patient tells me she doesn't want to talk to me or anyone else. She is tired of being in the hospital. Objective Data Date Time Temp Pulse Resp B/P Pulse Ox O2 Delivery O2 Flow Rate FiO2 08/06/16 10:52 79 08/06/16 08:00 97.2 70 20 95/56 100 08/06/16 07:57 98 21 08/06/16 06:39 97.6 72 21 114/56 97 08/06/16 01:55 98.7 74 18 110/57 97 08/05/16 19:50 97 08/05/16 19:35 98.4 79 21 114/56 97 08/05/16 19:15 79 08/05/16 16:07 98.0 76 20 117/64 94 Result Diagram: 08/05/16 0005 08/05/16 0005 Laboratory Results Laboratory Tests Test 08/06/16 03:29 D-Dimer Quantitative (PE/DVT) 0.83 MG/L FEU C-Reactive Protein 3.20 MG/DL Rheumatoid Factor Screen NEGATIVE Rheumatoid Factor Titer IU/ML Anti-Nuclear Antibody Screen NEG Culture Results Microbiology Date/Time Procedure Status Source Growth 08/04/16 17:45 Aerobic Blood Culture - Preliminary Resulted Blood Peripheral NO GROWTH IN 2 DAYS 08/04/16 17:45 Anaerobic Blood Culture - Preliminary Resulted Blood Peripheral NO GROWTH IN 2 DAYS 08/04/16 17:45 Aerobic Blood Culture - Preliminary Resulted Blood Peripheral NO GROWTH IN 2 DAYS 08/04/16 17:45 Anaerobic Blood Culture - Preliminary Resulted Blood Peripheral NO GROWTH IN 2 DAYS 08/05/16 01:10 Urine Culture - Preliminary Resulted Urine Catheterized Urine NO GROWTH IN 24 HOURS. 08/05/16 05:33 Gram Stain - Final Resulted Sputum Expectorated Sputum 08/05/16 05:33 Sputum Culture Resulted Sputum Expectorated Sputum Pending Imaging Studies Last 24 hours Impressions Chest X-Ray 08/06/16 0600 Signed Impressions: Service Date/Time: Saturday, August 06, 2016 06:22 - CONCLUSION: 1. No acute cardiopulmonary disease. Jag Santizo MD Objective Remarks GENERAL: Middle aged woman, sitting up in bed in nad. HEAD: Normocephalic. EYES: No injection or drainage. NECK: Supple, trachea midline. NEUROLOGICAL: awake and alert, normal speech. Assessment/Plan Problem List: (1) Factor V Leiden mutation Status: Acute Plan: --history of multiple miscarriages and hypercoagulable workup showed the mutation. --no history of thromboembolic event.no family history of thromboembolic event. --CT chest showed no PE --MANNY showed no vegetation or endocarditis. Assessment 41y/o female with Factor V Leiden mutation, no history of thromboembolic event h/o Colon polyps MRSA Hepatitis C IV drug use. Bacterial endocarditis a year ago. Fibromyalgia. Multiple miscarriages. Plan 1. monitor blood counts 2. supportive care 3. recommend follow up with Rheumatology Attending Statement The exam, history, and the medical decision-making described in the above note were completed with the assistance of the mid-level provider. I reviewed and agree with the findings presented. I attest that I had a [id number] encounter with the patient on the same day, and personally performed and documented my assessment and findings in the medical record. (late entry) Reviewed CT of chest result with patient. No etiology for her SOB. No evidence of thrombosis. No other hematologic workup needed at this time. Chasity Francois Aug 06, 2016 15:01 Wilberto Plaza MD Aug 06, 2016 17:24
== END 2016-08-06 11:13 | disposition home or self-care (01) ==
LOC: NEPE 17:10 → NEDA 17:34 → NEDH 22:43 → NEPGCP 08-05 13:09
PROVIDERS: ADMIT Obstetrics & Gynecology; ATTEND Obstetrics & Gynecology
DX: D68.51 Activated protein C resistance (principal); J20.9 Acute bronchitis, unspecified; B95.5 Unspecified streptococcus as the cause of diseases classified elsewhere; D68.9 Coagulation defect, unspecified; B19.20 Unspecified viral hepatitis C without hepatic coma; K74.60 Unspecified cirrhosis of liver; R01.1 Cardiac murmur, unspecified; M79.7 Fibromyalgia; F32.9 Major depressive disorder, single episode, unspecified; F41.9 Anxiety disorder, unspecified; F90.9 Attention-deficit hyperactivity disorder, unspecified type; R82.79 Other abnormal findings on microbiological examination of urine; F17.200 Nicotine dependence, unspecified, uncomplicated; Z90.710 Acquired absence of both cervix and uterus; Z87.442 Personal history of urinary calculi; Z86.010 Personal history of colon polyps
CPT/HCPCS: 71010; 71020; 71260; 80048; 80053; 80307; 81001; 82550; 82552; 83605; 83735; 83880; 84100; 84484; 85025; 85379; 85610; 85730; 86038; 86140; 86430; 87040; 87070; 87086; 87205; 93005; 93312; 93320; 93325; 94640; 94664; 99285; G0378; J1940; J2543; J7040; Q9967